=== PATIENT | female | born 1955 | race Caucasian/White ===

== ENCOUNTER → 2016-07-13 | Outpatient (CLI) | payer BC ==
--- NOTE | 2016-07-17 07:42 | MM ---
Reason for exam: screening (asymptomatic). Last mammogram was performed 1 year and 1 month ago. History: Patient is postmenopausal. Took hormonal contraceptives for 1 year beginning at age 21. Physical Findings: A clinical breast exam by your physician is recommended on an annual basis and results should be correlated with mammographic findings. MG Screening Mammo w CAD Bilateral CC and MLO view(s) were taken. Prior study comparison: June 06, 2015, bilateral MG screening mammo w CAD. October 24, 2012, bilateral digital screening mammo w/CAD. The breast tissue is heterogeneously dense. This may lower the sensitivity of mammography. Finding: There are typically benign round calcifications in the left breast. There is a chronic nodularity in the left axilla. There is no discrete abnormality. ASSESSMENT: Benign, BI-RAD 2 RECOMMENDATION: Routine screening mammogram of both breasts in 1 year.
== END | disposition home or self-care (01) ==
LOC: RADMAMWWP 10:54
PROVIDERS: ATTEND Family Medicine
DX: Z12.31 Encounter for screening mammogram for malignant neoplasm of breast (principal)

== ENCOUNTER → 2017-12-05 | Outpatient (CLI) | payer BC ==
--- NOTE | 2017-12-09 10:38 | MM ---
Reason for exam: screening (asymptomatic). Last mammogram was performed 1 year and 5 months ago. History: Patient is postmenopausal and history of other cancer. Took hormonal contraceptives for 1 year beginning at age 21. Physical Findings: A clinical breast exam by your physician is recommended on an annual basis and results should be correlated with mammographic findings. MG 3D Screening Mammo W/Cad Bilateral CC and MLO view(s) were taken. Prior study comparison: July 13, 2016, bilateral MG screening mammo w CAD. June 06, 2015, bilateral MG screening mammo w CAD. The breast tissue is heterogeneously dense. This may lower the sensitivity of mammography. Finding: There are typically benign round calcifications in the inner quadrant, posterior position of the left breast. There is a chronic nodularity in the left breast. There is no discrete abnormality. ASSESSMENT: Benign, BI-RAD 2 RECOMMENDATION: Routine screening mammogram of both breasts in 1 year.
== END | disposition home or self-care (01) ==
LOC: RADMAMWWP 10:42
PROVIDERS: ATTEND Family Medicine
DX: Z12.31 Encounter for screening mammogram for malignant neoplasm of breast (principal)
CPT/HCPCS: 77063; 77067

== ENCOUNTER → 2018-08-07 | Outpatient (CLI) | payer BC ==
--- NOTE | 2018-08-07 16:39 | CONS ---
CONSULTATION DATE OF SERVICE: 08/07/2018. 63-year-old lady who has been re-evaluated in [facility] for obstructive sleep apnea- hypopnea syndrome. HISTORY OF PRESENT ILLNESS/ SLEEP WAKE EVALUATION: Patient has been diagnosed with obstructive sleep apnea in 2008. At that time during the sleep study, apnea-hypopnea index 30.6. She was started on treatment with BiPAP and continued to use BiPAP equipment every night until now. SLEEP SCHEDULE: Her sleep schedule usually from 11 p.m. to 9 a.m. FALLING ASLEEP: Sometimes she has problem with falling asleep, although no TV in bedroom. DURING SLEEP: Usually sleeps on the side position. The patient does snore at night. With the usage of the machine, she does not snore. She may wake up from sleep twice. DURING THE DAY/SLEEP WAKE EVALUATION: No history of hypnagogic complete hypnagogic hallucinations, sleep paralysis or cataplexy. [place] Sleepiness Scale is 1, which is normal, but sometimes patient takes naps in the middle of the day. PAST MEDICAL HISTORY: Positive for hypertension, panic attacks. PAST SURGICAL HISTORY: Tonsillectomy, tubal ligation. MEDICATIONS: 1. Fluoxetine. 2. . SOCIAL HISTORY: Negative for smoking. Alcohol consumption occasional. FAMILY HISTORY: Hypertension, heart problems, arthritis, bronchitis, sleep apnea, cancer, mental illness. PHYSICAL EXAM: GENERAL: lady without distress. VITAL SIGNS: BP 152/80, HR 76, RR 16, height 5 feet 1 inch, weight 149 pounds, body mass index 28.1, temperature 98.1, oxygen saturation at room air 98%. HEENT: Oropharynx extremely low position of soft palate. Mallampati 4. Restriction of nasal breathing, possibly nasal septum deviation. Neck Supple, no JVD. Thyroid is not palpable. LUNGS Clear to percussion and to auscultation. Good air exchange. No wheezing or rhonchi. HEART S1, S2 regular. No murmurs, gallops, or rubs. ABDOMEN Soft and nontender. Bowel sounds are present. No organomegaly appreciated. EXTREMITIES No clubbing or cyanosis. MANNEQUIN WIG MAKER Awake, alert, and oriented X3. Cranial nerves 2 to 7 intact. There is no fasciculation or atrophy. noted. No focal deficits observed. IMPRESSION: 1. Obstructive sleep apnea-hypopnea syndrome in severe range since 2008. The patient continued to use her BiPAP equipment. 2. History of panic attacks. 3. Hypertension. 4. Status post tonsillectomy. 5. Status post tubal ligation. PLAN: 1. Patient will continue to use her BiPAP treatment every night for the whole night. 2. Prescription for new BiPAP unit with BiPAP pressure 10/6 cm of water. We will use auto BiPAP. 3. Sleep hygiene with regular time in bed for 7.5 hours. 4. No driving if feeling sleepiness. Thank you very much for allowing me to participate in management of your patient. Sincerely, Ronni Driver MD, PhD, FAASM Diplomat of [employer] Tractor Operator [employer] [facility] [place] MMODL / GENNYN: [id number] /
== END | disposition home or self-care (01) ==
LOC: SLEEP 14:21
PROVIDERS: ATTEND Internal Medicine
DX: G47.33 Obstructive sleep apnea (adult) (pediatric) (principal); I10 Essential (primary) hypertension; Z86.59 Personal history of other mental and behavioral disorders; Z98.51 Tubal ligation status; Z99.89 Dependence on other enabling machines and devices; Z90.09 Acquired absence of other part of head and neck; Z79.899 Other long term (current) drug therapy
CPT/HCPCS: 99211

== ENCOUNTER → 2018-10-09 | Outpatient (CLI) | payer BC ==
--- NOTE | 2018-10-09 12:14 | SFUN ---
SLEEP CENTER FOLLOW UP NOTE DATE OF SERVICE: 10/09/2018 A 63-year-old lady who has been followed in the Sleep Center for treatment of obstructive sleep apnea-hypopnea syndrome. Patient received new BiPAP unit and she likes how machine works. She is able to use it every night. She sleeps well with the machine. [place] Sleepiness Scale today is only 1. I checked BiPAP unit, inspiratory pressure 12, minimal inspiratory pressure 4 for pressure support. Patient is using equipment 29/30 nights and 28/30 nights more than 4 hours with average to 6.9 hours, which is perfect compliance. Leak is 70 L/minute which is normal range. Apnea-hypopnea index for the last month, 7.2. Medications fluoxetine and chlorthalidone. PHYSICAL EXAM: Patient in no distress, BP 124/64, HR 68, RR 14, weight 150.0, temperature 97.8, oxygen saturation at room air 95%. OROPHARYNX: Extremely low soft palate, Mallampati IV. Neck Supple, no JVD. Thyroid is not palpable. LUNGS Clear to percussion and to auscultation. Good air exchange. No wheezing or rhonchi. HEART S1, S2 regular. No murmurs, gallops, or rubs. ABDOMEN Soft and nontender. Bowel sounds are present. No organomegaly appreciated. EXTREMITIES No clubbing or cyanosis. CHECK CLERK Awake, alert, and oriented X3. Cranial nerves 2 to 7 intact. There is no fasciculation or atrophy. noted. No focal deficits observed. IMPRESSION: 1. Obstructive sleep apnea-hypopnea syndrome in severe range. Patient demonstrated great compliance with treatment, benefitting from treatment. Apnea-hypopnea index slightly increased on treatment with present regimen of BiPAP. 2. History of panic attack. 3. Hypertension. 4. Status post tonsillectomy. 5. Status post tubal ligation. PLAN: 1. I will increase pressure range of BiPAP to the maximal inspiratory pressure to 15 cm of water. 2. Patient will continue to use equipment every night for the whole night. 3. Watching weight. 4. Sleep hygiene with regular time in bed for at least 8 hours. 5. No driving if feeling sleepiness. Thank you very much for allowing me to participate in the management of your patient. Sincerely, Ronni Driver MD, PhD, FAASM Diplomat of [employer] [facility] [place] MMCLEO / DINO: [id number] /
== END | disposition home or self-care (01) ==
LOC: SLEEP 10:41
PROVIDERS: ATTEND Internal Medicine
DX: G47.33 Obstructive sleep apnea (adult) (pediatric) (principal); I10 Essential (primary) hypertension; Z86.59 Personal history of other mental and behavioral disorders; Z99.89 Dependence on other enabling machines and devices; Z90.09 Acquired absence of other part of head and neck; Z98.51 Tubal ligation status; Z79.899 Other long term (current) drug therapy